=== PATIENT | female | born 1985 | race Caucasian/White ===

== ENCOUNTER 2017-10-31 14:02 | Emergency (ER) | payer SELFPAY ==
[2017-10-31 14:10] VITALS: BP 140/87; PULSE 92; RESP 18; TEMP 98.1; O2SAT 97
--- NOTE | 2017-10-31 14:42 | EDPHY ---
H & P Time Seen by Provider: 10/31/17 14:20 HPI/ROS: CHIEF COMPLAINT: Dog bite to right upper extremity HISTORY OF PRESENT ILLNESS: Patient saw a small dog a running in [place] and had a neuro tract. She went to assist the dog and hit better on the right hand. The deli bakery clerk did eventually take control of the dog. Unknown vaccination status on dog but appeared healthy. Patient states tetanus less than 10 years ago. No other complaints. Contents of 10 point review of systems otherwise negative except for what is mentioned in HPI. General Appearance: Alert and no distress. Eyes: Pupils equal and round no injection. Respiratory: No respiratory distress Musculoskeletal: Neck is supple and nontender. Extremities have full range of motion and are nontender. Right wrist with abrasion and some ecchymosis but no bony tenderness. Right thumb with approximately 1 cm shallow laceration across pad with smaller flap laceration to tip of the thumb. Distal circulation sensation motion intact throughout right hand. Skin: No rashes or lesions. DIFFERENTIAL DIAGNOSIS: After history and physical exam differential diagnosis was considered for suturable laceration, fracture, retained foreign body. Minor lacerations to the thumb after dog bite. No evidence of fracture, dislocation, neurovascular involvement or retained foreign body. Patient refusing x-ray. Cleaned and dressed. Signs and symptoms of infection discussed in detail with recommendations to return to the emergency department if they occur. Stable for discharge. Smoking Status: Never smoked Constitutional: Initial Vital Signs Temperature (C) 36.7 C 10/31/17 14:04 Heart Rate 92 10/31/17 14:04 Respiratory Rate 18 10/31/17 14:04 Blood Pressure 140/87 H 10/31/17 14:04 O2 Sat (%) 97 10/31/17 14:04 O2 Delivery Mode Room Air Allergies/Adverse Reactions: No Known Allergies Allergy (Unverified 10/31/17 14:11) Home Medications: Medication Instructions Recorded NK [No Known Home Meds] 10/31/17 Medical Decision Making ED Course/Re-evaluation: Patient refusing x-ray. Also refused digital block for pain control and cleaning. States tetanus vaccination less than 10 years. Departure - Departure Clinical Impression: Dog bite of arm Qualifiers: Encounter type: initial encounter Laterality: right Qualified Code(s): S41.151A - Open bite of right upper arm, initial encounter; W54.0XXA - Bitten by dog, initial encounter; W54.0XXA - Bitten by dog, initial encounter Condition: Good Instructions: Animal Bite (ED) Additional Instructions: Keep area clean, use soap and water daily, apply antibiotic ointment and keep wound covered in tell well healed. Return to the emergency department for any signs or symptoms of infection, these include increased redness, pain, swelling or pus.
== END 2017-10-31 14:55 | disposition home or self-care (01) ==
LOC: CED 14:02
DX: S41.151A Open bite of right upper arm, initial encounter (principal); W54.0XXA Bitten by dog, initial encounter